=== PATIENT | female | born 1965 | race Caucasian/White ===

== ENCOUNTER 2017-10-16 09:13 | Inpatient (IN) | payer OTHER ==
[~2017-10-16] VITALS: Ht 160 cm; Wt 70.3 kg
--- NOTE | ~2017-10-16 | EKG ---
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
--- NOTE | ~2017-10-16 | 2DMMODE ---
[facility] [address] [address] 2 D/M-MODE ECHOCARDIOGRAM Name: SALINA WILSON Room #: 406-P [facility] IN ..#: [id number] Admission: 10/16/17 Attend Phys: Mahamed Montilla MD Discharge: Date of : 63 Date of Service: 10/17/17 0957 Report #: [id number] THIS REPORT FOR: //name// APPROVED REPORT Study performed: 10/17/2017 08:29:54 EXAM: Comprehensive 2D, Doppler, and color-flow Echocardiogram Patient Location: Echo lab Room #: 406 Status: routine BSA: 1.72 BP: 118/70 mmHg Other Information Study Quality: Good Indications Syncope 2D Dimensions LVEF(%): 69.39 (>50%) IVSd: 7.66 (7-11mm) LVOT Diam: 19.53 (18-24mm) LVDd: 50.36 mm PWd: 9.99 (7-11mm) Ascending Ao: 31.09 (22-36mm) LVDs: 30.62 (25-40mm) Aortic Root: 26.18 mm IVC: 1.70 mm Lea's LVEF: 69.39 % Volumes Left Atrial Volume (Systole) Single Plane 4CH: 31.49 mL Single Plane 2CH: 41.05 mL LA ESV Index: 24.00 mL/m2 Aortic Valve AoV Peak Brad.: 1.20 m/s AO Peak Gr.: 5.71 mmHg LVOT Max P.01 mmHg LVOT Max V: 1.12 m/s CHIO Vmax: 2.81 cm2 Mitral Valve E/A Ratio: 1.4 MV Decel. Time: 246.02 ms MV E Max Brad.: 1.01 m/s [facility] [place] [address] 2 D/M-MODE ECHOCARDIOGRAM Name: SALINA WILSON Room #: 406-P [facility] IN .R.#: [id number] Admission: 10/16/17 Attend Phys: Mahamed Montilla MD Discharge: Date of : 63 Date of Service: 10/17/17 0957 Report #: [id number] MV A Brad.: 0.70 m/s MV PHT: 71.35 ms IVRT: 124.57 ms Pulmonary Valve PV Peak Brad.: 1.34 m/s PV Peak Gr.: 7.16 mmHg Pulmonary Vein P Vein S: 0.78 m/s P Vein A: 0.28 m/s P Vein D: 0.50 m/s P Vein A Dur.: 170.7 msec P Vein S/D Ratio: 1.56 Tricuspid Valve TR Peak Brad.: 2.56 m/s TR Peak Gr.: 26.31 mmHg PA Pressure: 31.00 mmHg Left Ventricle The left ventricle is normal size. There is normal LV segmental wall motion. There is normal left ventricular wall thickness. The left ventricular systolic function is normal. The left ventricular ejection fraction is within the normal range. LVEF is 55-60%. Right Ventricle The right ventricle is normal size. The right ventricular systolic function is normal. Atria The left atrium size is normal. The right atrium size is normal. Aortic Valve The aortic valve is normal in structure. No aortic regurgitation is present. There is no aortic valvular stenosis. Mitral Valve The mitral valve is normal in structure. Mild mitral regurgitation. No evidence of mitral valve stenosis. Tricuspid Valve The tricuspid valve is normal in structure. There is mild tricuspid regurgitation. Pulmonic Valve The pulmonary valve is normal in structure. Trace pulmonic regurgitation. [address] [address] 2 D/M-MODE ECHOCARDIOGRAM Name: VONNIEJARADSALINA Room #: 406-P [facility] [place] [facility]#: [id number] Admission: 10/16/17 Attend Phys: Mahamed Montilla MD Discharge: Date of : 63 Date of Service: 10/17/17 0957 Report #: [id number] Great Vessels The aortic root is normal in size. IVC is normal in size and collapses >50% with inspiration. Pericardium There is no pericardial effusion. <Conclusion> The left ventricle is normal size. There is normal left ventricular wall thickness. The left ventricular systolic function is normal. The right ventricle is normal size. The left atrium size is normal. The aortic valve is normal in structure. Mild mitral regurgitation. There is mild tricuspid regurgitation. <ELECTRONICALLY SIGNED> By: Antwon Roberto MD 10/17/1757 6 Antwon Roberto MD /INF
[2017-10-16 09:29] VITALS: BP 98/69
[2017-10-16 11:01] LABS: ABSOLUTE NEUTROPHILS 3.8 thou/uL (1.4-8.2); BASOPHILS 0.7 % (0.0-2.0); EOSINOPHILS 1.6 % (0.0-3.0); HEMATOCRIT 38.4 % (37.0-47.0); HEMOGLOBIN 12.9 gm/dL (12.0-15.0); LYMPHOCYTES 30.2 % (24.0-44.0); MCH 28.9 pg (26.0-34.0); MCHC 33.6 g/dL (28.0-37.0); MCV 85.9 fL (80.0-100.0); MONOCYTES 8.4 % (1.0-8.0); PLATELET COUNT 383 thou/uL (150-400); POLYS 59.1 % (36.0-66.0); RBC 4.48 mil/uL (4.20-5.00); RDW 13.7 % (10.5-14.5); WBC 6.5 thou/uL (4.0-11.0)
[2017-10-16 11:08] LABS: ANION GAP 10 mmol/L (7-16); BUN 8 mg/dL (7-18); CALCIUM 9.5 mg/dL (8.5-10.1); CHLORIDE 108 mmol/L (98-107); CO2 23 mmol/L (21-32); CREATININE 0.8 mg/dL (0.6-1.0); GLUCOSE 104 mg/dL (74-106); POTASSIUM 3.5 mmol/L (3.5-5.1); SODIUM 141 mmol/L (136-145)
[2017-10-16 11:17] LABS: TROPONIN-I < 0.04 ng/mL (<0.06)
[2017-10-16] MEDS ORDERED: CHILDREN'S ASPI81 M1 PO (12:34)
[2017-10-16] MEDS ORDERED: ONDANSETRON HCL4 M2 PO (12:36)
[2017-10-16] MEDS ORDERED: AMBIEN 10 MG TA10 MG PO (12:36)
[2017-10-16] MEDS ORDERED: SYNTHROID50 MCG PO (12:37)
[2017-10-16] MEDS ORDERED: IBUPROFEN 200200 M1 PO (12:38)
[2017-10-16] MEDS ORDERED: ZANTAC 150MG T150 MG PO (12:38)
[2017-10-16] MEDS ORDERED: VALACYCLOVIR1000 MG PO (12:39)
[2017-10-16] MEDS ORDERED: NEXIUM40 MG PO (12:39)
[2017-10-16] MEDS ORDERED: TOPAMAX50 MG PO (12:39)
[2017-10-16] MEDS ORDERED: PROAIR HFA8.5 GM (12:41)
[2017-10-16 13:10] VITALS: BP 127/58
[2017-10-16 16:00] VITALS: BP 119/63
[2017-10-16 19:04] VITALS: BP 114/75
[2017-10-17 04:15] VITALS: BP 101/53
[2017-10-17 05:55] LABS: HEMOGLOBIN 11.2 gm/dL (12.0-15.0); MCH 29.5 pg (26.0-34.0); MCHC 33.9 g/dL (28.0-37.0); MCV 87.1 fL (80.0-100.0); RBC 3.79 mil/uL (4.20-5.00); RDW 13.5 % (10.5-14.5); WBC 6.3 thou/uL (4.0-11.0)
[2017-10-17 06:13] LABS: CALCIUM 8.6 mg/dL (8.5-10.1); CREATININE 0.8 mg/dL (0.6-1.0); POTASSIUM 3.2 mmol/L (3.5-5.1)
[2017-10-17 07:34] VITALS: BP 118/70
[2017-10-17] MEDS ORDERED: HYDROCODON-ACE1 EAC7 PO (10:24)
[2017-10-17 10:37] VITALS: BP 118/70
== END 2017-10-17 14:40 | disposition home or self-care (01) | DRG 312 ==
LOC: ER 09:13 → 4N 12:19 → EROBS 12:19 → 4W 13:00 → 4N 19:19
PROVIDERS: Emergency Medicine; Hospitalist
DX: R55 Syncope and collapse (principal); E03.9 Hypothyroidism, unspecified; J45.909 Unspecified asthma, uncomplicated; K21.9 Gastro-esophageal reflux disease without esophagitis; F32.9 Major depressive disorder, single episode, unspecified; T50.905A Adverse effect of unspecified drugs, medicaments and biological substances, initial encounter; G62.9 Polyneuropathy, unspecified; Z88.2 Allergy status to sulfonamides; Z88.8 Allergy status to other drugs, medicaments and biological substances; Z88.1 Allergy status to other antibiotic agents; Z91.040 Latex allergy status; Z88.6 Allergy status to analgesic agent; Z79.82 Long term (current) use of aspirin; Z79.899 Other long term (current) drug therapy; Y92.89 Other specified places as the place of occurrence of the external cause
CPT/HCPCS: 10790

== ENCOUNTER 2019-05-24 19:16 | Emergency (ER) | payer OTHER ==
[~2019-05-24] VITALS: Ht 160 cm; Wt 59.0 kg
[~2019-05-24 19:16] MED LIST: AMBIEN 10 MG TA10 MG PO; CHILDREN'S ASPI81 M1 PO; HYDROCODON-ACE1 EAC7 PO; IBUPROFEN 200200 M1 PO; NEXIUM40 MG PO; ONDANSETRON HCL4 M2 PO; PROAIR HFA8.5 GM; SYNTHROID50 MCG PO; TOPAMAX50 MG PO; VALACYCLOVIR1000 MG PO; ZANTAC 150MG T150 MG PO
[2019-05-24 19:55] LABS: URINE BILIRUBIN NEGATIVE (Negative); URINE BLOOD TRACE (Negative); URINE CLARITY CLEAR; URINE COLOR YELLOW; URINE GLUCOSE-RANDOM* NEGATIVE (Negative); URINE KETONES NEGATIVE (Negative); URINE LEUKOCYTES-REFLEX TRACE (Negative); URINE NITRITE-REFLEX NEGATIVE (Negative); URINE PROTEIN (DIPSTICK) NEGATIVE (Negative); URINE SPECIFIC GRAVITY <= 1.005 (1.005-1.035); URINE UROBILINOGEN 0.2 E.U./dl (0.2-1.0)
[2019-05-24 20:00] LABS: AMP/METHAMP Negative (Negative); BARBITURATES Negative (Negative); BENZODIAZEPINES Negative (Negative); COCAINE Negative (Negative); METHADONE Negative (Negative); OPIATES Negative (Negative); PCP Negative (Negative)
[2019-05-24 20:05] LABS: ABSOLUTE NEUTROPHILS 3.4 thou/uL (1.4-8.2); BASOPHILS 1.1 % (0.0-2.0); EOSINOPHILS 2.2 % (0.0-3.0); LYMPHOCYTES 50.2 % (24.0-44.0); MCH 31.4 pg (26.0-34.0); MCHC 33.3 g/dL (28.0-37.0); MCV 94.4 fL (80.0-100.0); MONOCYTES 6.8 % (1.0-8.0); PLATELET COUNT 418 thou/uL (150-400); POLYS 39.7 % (36.0-66.0); RBC 4.77 mil/uL (4.20-5.00); RDW 12.8 % (10.5-14.5); WBC 8.5 thou/uL (4.0-11.0)
[2019-05-24 20:13] LABS: ANION GAP 10 mmol/L (7-16); BUN 12 mg/dL (7-18); CALCIUM 9.2 mg/dL (8.5-10.1); CHLORIDE 101 mmol/L (98-107); CO2 28 mmol/L (21-32); CREATININE 0.9 mg/dL (0.6-1.0); GLUCOSE 99 mg/dL (74-106); POTASSIUM 3.9 mmol/L (3.5-5.1); SODIUM 139 mmol/L (136-145)
[2019-05-24 20:20] LABS: ALBUMIN 4.3 g/dL (3.4-5.0); MAGNESIUM 2.1 mg/dL (1.8-2.4); SGOT 20 U/L (15-37); SGPT 22 U/L (30-65); TOTAL BILIRUBIN 0.3 mg/dL (<0.1-1.0); TOTAL PROTEIN 8.6 g/dL (6.4-8.2)
[2019-05-24 20:32] LABS: SALICYLATE 3.5 mg/dL (2.8-20.0)
[2019-05-24 21:45] VITALS: BP 126/86
--- NOTE | 2019-05-25 13:46 | EKG ---
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
== END 2019-05-24 21:46 | disposition home or self-care (01) ==
LOC: ER 19:16
PROVIDERS: Emergency Medicine
DX: F29 Unspecified psychosis not due to a substance or known physiological condition (principal); E03.9 Hypothyroidism, unspecified; K21.9 Gastro-esophageal reflux disease without esophagitis; F32.9 Major depressive disorder, single episode, unspecified; Z88.2 Allergy status to sulfonamides; Z88.8 Allergy status to other drugs, medicaments and biological substances; Z88.1 Allergy status to other antibiotic agents; Z91.040 Latex allergy status